=== PATIENT | female | born 1945 | race African-American/Black ===

== ENCOUNTER 2017-06-19 19:59 | Emergency (ER) | payer OTHER, MEDICARE ==
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
[2017-06-19 20:59] VITALS: BP 136/74
== END 2017-06-19 20:59 | disposition home or self-care (01) ==
LOC: ER 19:59
DX: S16.1XXA Strain of muscle, fascia and tendon at neck level, initial encounter (principal); R51 Headache; M54.2 Cervicalgia; V87.7XXA Person injured in collision between other specified motor vehicles (traffic), initial encounter
CPT/HCPCS: 70450; 72125; 99284

== ENCOUNTER → 2019-03-25 | Outpatient (CLI) | payer MEDICARE ==
--- NOTE | 2019-03-26 12:43 | XCELERA REPORT ---
[address] [address] Lower Extremity Arterial Evaluation Name: KONG MAIER Age: 73 yrs Gender: Female : 1945 Patient Status: Outpatient Patient Location: RAD Study Date: 03/25/2019 01:17 PM Procedure: A color flow and duplex scan of the lower extremity arteries was performed bilaterally with velocity and waveform anaylsis. Ankle brachial indicies performed. Reason For Study: PVD Ordering Physician: TYRONE HOWE Performed By: Aly Law Measurements and Calculations Right Left [place]ILMAN PSV 148.4 142.3 cm/sec Prox PFA PSV 124.3 97.1 cm/sec Prox SFA PSV 141.4 172.9 cm/sec Mid SFA PSV -130.4 -131.0cm/sec Dist SFA PSV -101.2 -97.8 cm/sec Prox Pop A PSV 98.7 71.1 cm/sec Mid BALTAZAR PSV 72.3 cm/sec Dist BALTAZAR PSV 79.0 259.0 cm/sec Dist FUR GRADER PSV 138.3 111.4 cm/sec Fransico Pedis PSV 98.1 105.6 cm/sec Right Side Arterial Evaluation Normal velocity and triphasic waveforms noted from the Common Femoral artery to the infrageniculate vessels . Ankle Brachial index 1.08. PPG's are multiphasic and are not attenuated. Left Side Arterial Evaluation Normal velocity and triphasic waveforms noted from the Common Femoral artery to the infrageniculate vessels . A focal stenosis is noted in the mid Anteriior Tibial, which does not affect the flow distally. Ankle Brachial index 1.25. PPG's are multiphasic and are not attenuated. Interpretation Summary No hemodynamically significant lesions in the right lower extremity only, on duplex imaging, at rest. Mild hemodynamically significant lesions in the left lower extremity only, on duplex imaging, at rest. the findings are normal, except or an isolated areas of stenosis, in the left Anterior tibial, which is not hemodynamically significant, at rest. AYAN's are within normal limits, suggesting no significant arterial compromise. PPG's are normal suggesting no significant arterial compromise. : TYRONE HOWE > Brennan Hess
== END ==
LOC: RAD 12:54
PROVIDERS: ATTEND Podiatrist Foot Surgery
DX: I73.9 Peripheral vascular disease, unspecified (principal)
CPT/HCPCS: 93922; 93925